=== PATIENT | male | born 1955 | race Hispanic/Latino ===

== ENCOUNTER → 2022-06-28 | Outpatient (CLI) | payer MEDICARE, OTHER ==
[~2022-06-28] MED LIST: REGADENOSON 0.4 MG/5 ML PF SYG IVP SCH
== END | disposition home or self-care (01) ==
LOC: SHCH 07:59
PROVIDERS: ATTEND Internal Medicine Cardiovascular Disease
DX: I25.119 Atherosclerotic heart disease of native coronary artery with unspecified angina pectoris (principal)
CPT/HCPCS: 78452; 96374; 93017; J2785; A9500 ×2

== ENCOUNTER → 2023-02-07 | Outpatient (CLI) | payer OTHER ==
[~2023-02-07] MED LIST changes: +REGADENOSON 0.4 MG/5 ML PF SYG IVP ONE; -REGADENOSON 0.4 MG/5 ML PF SYG IVP SCH
== END | disposition home or self-care (01) ==
LOC: SHCH 07:52
PROVIDERS: ATTEND Internal Medicine Cardiovascular Disease
DX: I25.119 Atherosclerotic heart disease of native coronary artery with unspecified angina pectoris (principal); R07.9 Chest pain, unspecified
CPT/HCPCS: 78452; 96374; 93017; J2785; A9500 ×2